=== PATIENT | female | born 1990 | race Caucasian/White ===

== ENCOUNTER 2018-09-26 23:15 | Emergency (ER) | payer BC, SELFPAY ==
[2018-09-26] MEDS ORDERED: Lidocaine 1% PF 5 ML VIAL ONE (23:26)
[2018-09-26] MEDS ORDERED: HYDROcodone/Acetaminophen 5/325 mg Tablet ONE (23:38)
== END 2018-09-26 23:43 | disposition home or self-care (01) ==
LOC: SCSER 23:15
DX: L02.31 Cutaneous abscess of buttock (principal)
CPT/HCPCS: 10060; J2001